=== PATIENT | female | born 1955 | race Hispanic/Latino ===

== ENCOUNTER 2018-08-18 03:04 | Inpatient (IN) | payer OTHER ==
[2018-08-18] MEDS ORDERED: HEPARIN ONE (03:15)
--- NOTE | 2018-08-18 03:16 | Emergency Department Report ---
ED General Adult HPI - General Chief complaint: Chest Pain Stated complaint: STEMI Time Seen by Provider: 08/18/18 03:15 Source: EMS Mode of arrival: Stretcher Limitations: Physical Limitation - History of Present Illness Initial comments: 62-year-old female with a prior history of coronary artery disease presents with the complaint of chest pain was started 1:30 AM. Patient caught EMS. Patient has a history of 2 prior MIs in 2011 and 2 prior stents. Family states that one of the stents collapse recently. Patient was given 324 aspirin 0.4 nitrogl ycerin 75 g of fentanyl prior to arrival. Patient states initially her pain was 8 out of 10 with administration of fentanyl and nitroglycerin pain now as a 3 out of 10. - Related Data Allergies Allergy/AdvReac Type Severity Reaction Status Date / Time No Known Allergies Allergy Verified 08/18/18 03:15 ED Review of Systems ROS: Stated complaint: STEMI Other details as noted in HPI Constitutional: denies: chills, fever Eyes: denies: eye pain, eye discharge, vision change ENT: denies: ear pain, throat pain Respiratory: denies: cough, shortness of breath, wheezing Cardiovascular: chest pain Endocrine: no symptoms reported Gastrointestinal: denies: abdominal pain, nausea, diarrhea Genitourinary: denies: urgency, dysuria, discharge Musculoskeletal: denies: back pain, joint swelling, arthralgia Skin: denies: rash, lesions Neurological: denies: headache, weakness, paresthesias Psychiatric: denies: anxiety, depression Hematological/Lymphatic: denies: easy bleeding, easy bruising ED Past Medical Hx - Past Medical History Previous Medical History?: Yes Hx Hypertension: Yes Hx CVA: Yes (X2 in 2011. Stents X2) - Surgical History Past Surgical History?: Yes - Social History Smoking Status: Unknown if ever smoked ED Physical Exam - General Limitations: Physical Limitation General appearance: alert, other (uncomfortable; moderate distress) - Head Head exam: Present: atraumatic, normocephalic - Eye Eye exam: Present: normal appearance - ENT ENT exam: Present: mucous membranes moist - Neck Neck exam: Present: normal inspection - Respiratory Respiratory exam: Present: normal lung sounds bilaterally. Absent: respiratory distress - Cardiovascular Cardiovascular Exam: Present: regular rate, normal rhythm. Absent: systolic murmur, diastolic murmur, rubs, gallop - GI/Abdominal GI/Abdominal exam: Present: soft, normal bowel sounds - Extremities Exam Extremities exam: Present: normal inspection - Back Exam Back exam: Present: normal inspection - Neurological Exam Neurological exam: Present: alert, oriented X3 - Psychiatric Psychiatric exam: Present: normal affect, normal mood - Skin Skin exam: Present: warm, dry, intact, normal color. Absent: rash ED Course Vital Signs 08/18/18 08/18/18 03:18 03:20 Pulse Rate 80 Respiratory 16 Rate Blood Pressure 127/75 ED Medical Decision Making - EKG Data -: EKG Interpreted by Me EKG shows normal: ST-T waves Rate: normal - EKG Data Interpretation: other (ST elevation PR noted. ST elevation of 4 mm noted in V2 V3 V4 as well as V5) - Medical Decision Making Patient presented with EKG concerning for a STEMI. EKG from EMS was sent to Dr. Dangelo at 0256. Upon discussion of the patient as well as him reviewing the EKG denies sent to him the attacks he stated initially that he wanted to have a repeat EKG once patient presented here to the ER. Patient then presented here to the ER and had a EKG read repeated and sent to at 0308. Upon receiving this EKG he states that the patient is indeed a STEMI and to activate the laborer construction or leak gang. Patient then received a second dose of nitroglycerin 0.4 mg and was initiated on heparin therapy. - Differential Diagnosis STEMI; NSTEMI; anemia; dehydration; Critical Care Time: Yes Critical care time in (mins) excluding proc time.: 40 Critical care attestation.: If time is entered above; I have spent that time in minutes in the direct care of this critically ill patient, excluding procedure time. Critical care time includes time spent on direct bedside care; physician con sultation, and frequent reassessments. ED Disposition Clinical Impression: STEMI (ST elevation myocardial infarction) Disposition: -09 OP ADMIT IP TO THIS HOSP Is pt being admited?: Yes Does the pt Need Aspirin: Yes Condition: Fair Referrals: SCOTT GIBBS MD [Primary Care Provider] - 3-5 Days Time of Disposition: 03:35 Print Language: CHILEAN
[2018-08-18] MEDS ORDERED: NITROSTAT SL ONE (03:18)
[2018-08-18] MEDS ORDERED: HEPARIN 10,000 UNITS/10 ML IV ONE (03:19)
[2018-08-18] MEDS: HEPARIN IV STA ×2 (03:19→03:24)
[2018-08-18] MEDS ORDERED: HEPARIN/ 0.45% NACL-25,000 UNIT/500 ML 25,000 UNIT/500 ML BAG ONE (03:23)
--- NOTE | 2018-08-18 03:29 | XRay Report ---
PROCEDURE: XR CHEST 1V AP TECHNIQUE: A portable supine view of the chest was obtained. HISTORY: Chest Pain COMPARISONS: None FINDINGS: The heart size is normal. The lungs appear mildly congested. There is bilateral interstitial prominen ce. Pleural fluid is not seen. The skeletal structures do not show any acute changes. IMPRESSION: Mild congestive heart failure pattern.. This document is electronically signed by Beltran Diamond MD., August 18 2018 03:27:19 AM ET
[2018-08-18] MEDS ORDERED: HEPARIN/ 0.45% NACL-25,000 UNIT/500 ML 25,000 UNIT/500 ML BAG IV SCH (03:30)
[2018-08-18] MEDS ORDERED: PLAVIX PO ONE ×2 (03:37→03:38)
[2018-08-18 03:47] LABS: Hematocrit 38.2 % (30.3-42.9); Hemoglobin 12.8 gm/dl (10.1-14.3); Mean Corpuscular HGB Conc 34 % (30-34); Mean Corpuscular Volume 92 fl (79-97); Platelet Count 412 K/mm3 (140-440); Red Blood Count 4.16 M/mm3 (3.65-5.03); Red Cell Distribution Width 12.7 % (13.2-15.2)
[2018-08-18] MEDS ORDERED: ATROPINE 0.1% (CARDIAC) ONE ×3 (03:50→10:45)
[2018-08-18] MEDS ORDERED: ADRENALIN ONE ×3 (03:50→10:45)
[2018-08-18] MEDS ORDERED: XYLOCAINE CARDIAC IV ONE ×3 (03:50→10:45)
[2018-08-18] MEDS ORDERED: VERSED ONE (03:51)
[2018-08-18] MEDS ORDERED: NITROGLYCERIN SYRINGE 3 ML ONE ×3 (03:51→10:21)
[2018-08-18] MEDS ORDERED: CALAN ONE (03:51)
[2018-08-18] MEDS ORDERED: HEPARIN/NS 5000 UNIT/500ML(CATH LAB) 1,000 ML IR ONE ×2 (03:51→10:20)
[2018-08-18] MEDS ORDERED: NEO SYNEPHRINE/NS Syringe(OR USE) IV ONE ×3 (03:51→11:38)
[2018-08-18] MEDS ORDERED: XYLOCAINE 2% INFILTRATI ONE ×2 (03:51→10:21)
[2018-08-18] MEDS: SUBLIMAZE ONE ×2 (03:55→04:17)
[2018-08-18 03:57] LABS: INR 0.95 (0.87-1.13)
[2018-08-18] MEDS: HEPARIN 10,000 UNITS/10 ML ONE ×2 (03:57→04:03)
[2018-08-18 03:58] LABS: Partial Thromboplastin Time 22.8 Sec. (24.2-36.6)
[2018-08-18 04:08] LABS: Alanine Aminotransferase 17 units/L (7-56); Albumin 4.3 g/dL (3.9-5); BUN/Creatinine Ratio 24; Blood Urea Nitrogen 22 mg/dL (7-17); Calcium 9.7 mg/dL (8.4-10.2); Hemolysis Index 4
[2018-08-18] MEDS ORDERED: AGGRASTAT DRIP (12.5 MG/250 ML) 12,500 MCG/250 ML BAG IV ONE ×2 (04:11→11:35)
[2018-08-18] MEDS ORDERED: NACL 0.9% 500 ML 500 ML ONE ×3 (04:13→11:44)
[2018-08-18 04:20] LABS: LDL Cholesterol,Direct TNR mg/dL (50-130)
[2018-08-18] MEDS ORDERED: TRIDIL DRIP 50MG/250ML 50 MG/250 ML BOTTLE ONE (04:20)
[2018-08-18] MEDS ORDERED: BRILINTA ONE (04:21)
[2018-08-18] MEDS ORDERED: ALUM-MAG HYDROX-SIMETH 200-200-20MG/5ML ONE (04:21)
[2018-08-18] MEDS ORDERED: PLAVIX ONE (04:51)
[2018-08-18 04:52] LABS: Band Neutrophils # (Manual) 0.1 K/mm3; Basophils % (Manual) 0 % (0.0-1.8); Total Cells Counted 100
[2018-08-18 04:54] LABS: Platelet Estimate Consistent w Auto
[2018-08-18 04:55] LABS: Chol/HDL Ratio 13.32 %; HDL Cholesterol 25 mg/dL (40-59)
[2018-08-18] MEDS ORDERED: TRIDIL DRIP 50MG/250ML 50 MG/250 ML BOTTLE IV ONE (05:08)
[2018-08-18] MEDS ORDERED: MORPHINE IV PRN (05:08)
[2018-08-18] MEDS ORDERED: ZOFRAN IV PRN (05:08)
[2018-08-18] MEDS ORDERED: MORPHINE ONE (05:17)
[2018-08-18] MEDS ORDERED: D50W (25GM) Syringe IV PRN (05:20)
--- NOTE | 2018-08-18 05:20 | History and Physical Report ---
History of Present Illness Date of examination: 08/18/18 Date of admission: 08/18/2018 Chief complaint: chest pain History of present illness: 62-year-old patient with known coronary disease in 2008 had PCI hypertension hyperlipidemia patient states adverse reaction to statin medication causing muscle pain and diabetes insulin requiring [place] had chest pain midsternal nonradiating with mild nausea which shortness of breath pressure-like with mild nausea no syncope EMS was called showed some mild ST elevations but no reciprocal changes patient's pain did not get better. Repeat EKG showed increased ST elevations in anterior lateral leads and acute NH protocol was initiated. Patient was brought emergently to [facility] where the right radial approach revealed RCA nondominant stent 90% mid nondominant vessel small caliber and borderline normal LV function elevated left end-diastolic pressure. Left knee enlargement. LAD proximal 95 mid 100% diagonal one stent patent but distal to 90% small-caliber vessel circumflex large dominant. Her mom irregularities obtuse marginal 1 and obtuse marginal 2 medium to large caliber vessels patent with mild to moderate irregularities separate percutaneous coronary intervention of the LAD ballooned the LAD and used a thrombectomy device for large clot burden intracoronary adenosine and nitroglycerin was given patient's stent to the mid LAD with a drug-eluting resolute 3.0 x 18 and stent of the proximal LAD with a drug-eluting resolute 4.0 x 18 KACI-3 was restored patient has some mild chest pain but markedly improved patient will be on IV nitroglycerin and IV Aggrastat Plavix loading was given Past History Past Medical History: CAD, diabetes, hypertension, hyperlipidemia Past Surgical History: denies: No surgical history Social history: denies: smoking, alcohol abuse, prescription drug abuse Medications and Allergies Allergies Allergy/AdvReac Type Severity Reaction Status Date / Time No Known Allergies Allergy Verified 08/18/18 03:15 Home Medications Medication Instructions Recorded Confirmed Last Taken Type Fenofibrate [Tricor] 145 mg PO DAILY 08/18/18 08/18/18 1 Day Ago History ~08/17/18 Gabapentin [Neurontin] 300 mg PO TID 08/18/18 08/18/18 1 Day Ago History ~08/17/18 Insulin Aspart [NovoLOG 100 10 units SUB-Q AC 08/18/18 08/18/18 1 Day Ago History UNITS/ML VIAL] ~08/17/18 Insulin Detemir [Levemir VIAL] 30 units SUB-Q BID 08/18/18 08/18/18 1 Day Ago History ~08/17/18 Metoprolol Tartrate 50 mg PO BID 08/18/18 08/18/18 1 Day Ago History ~08/17/18 Active Meds: Active Medications Aspirin (Baby Aspirin) 81 mg PO QDAY [facility] Clopidogrel Bisulfate (Plavix) 75 [facility] PO [facility] Fenofibrate (Tricor) 145 mg PO DAILY [facility] Gabapentin (Neurontin) 300 mg PO TID [facility] Heparin Sodium/Sodium Chloride (Heparin/ 0.45% Nacl-25,000 Unit/500 Ml) 25,000 unit in 500 mls @ 20 mls/hr IV TITRATE [facility]; Protocol Last Admin: 08/18/18 03:29 Dose: 1,000 units/hr, 20 mls/hr Documented by: Tirofiban/Sodium Chloride (Aggrastat Drip (12.5 Mg/250 Ml)) 12,500 mcg in 250 mls @ 0 mls/hr IV DIRECT [facility]IO; Protocol Stop: 08/18/18 23:59 Nitroglycerin/Dextrose (Tridil Drip 50mg/250ml) 50 mg in 250 mls @ 6 mls/hr IV TITR ONE; Protocol Stop: 08/19/18 22:47 Sodium Chloride (Nacl 0.9% 1000 Ml) 1,000 mls @ 100 mls/hr IV DIRECT [facility] Stop: 08/18/18 15:59 Lisinopril (Zestril) 5 mg PO QDAY [facility] Metoprolol Tartrate (Lopressor) 50 mg PO BID [facility] Miscellaneous Medication (Insulin Aspart) 10 units SUB-Q AC [facility] Miscellaneous Medication (Insulin Detemir [Levemir Vial]) 30 units SUB-Q BID [facility] Morphine Sulfate (Morphine) 2 mg IV Q5MIN PRN PRN Reason: Chest Pain unrelieved by NTG Ondansetron HCl (Zofran) 4 mg IV Q8H PRN PRN Reason: N/V unrelieved by Reglan Review of Systems All systems: negative (as per hpi) Physical Examination Vital Signs Pulse Resp BP Pulse Ox 72 15 129/74 96 08/18/18 03:07 08/18/18 03:07 08/18/18 03:07 08/18/18 03:07 General appearance: mild distress HEENT: Positive: PERRL, Mucus Membranes Moist Neck: Positive: neck supple, trachea midline Cardiac: Positive: Reg Rate and Rhythm, S1/S2. Negative: Audible Murmur Lungs: Positive: clear to auscultation, Normal Breath Sounds Neuro: Positive: Grossly Intact Abdomen: Positive: Soft, Active Bowel Sounds. Negative: Tender, Distended Female genitourinary: deferred Skin: Positive: Clear Incision: Cardiac Cath Site Musculoskeletal: No Pain, Normal Range of Motion Extremities: Present: normal. Absent: edema Results 08/18/18 03:24 08/18/18 03:24 Cardiac Enzymes 08/18/18 Range/Units 03:24 AST 18 (5-40) units/L Coagulation 08/18/18 Range/Units 03:24 PT 13.2 (12.2-14.9) Sec. INR 0.95 (0.87-1.13) APTT 22.8 L (24.2-36.6) Sec. Lipids 08/18/18 Range/Units 03:24 Triglycerides 483 H (2-149) mg/dL Cholesterol 333 H (50-199) mg/dL HDL Cholesterol 25 L (40-59) mg/dL Cholesterol/HDL Ratio 13.32 % CBC 08/18/18 Range/Units 03:24 WBC 11.2 H (4.5-11.0) K/mm3 RBC 4.16 (3.65-5.03) M/mm3 Hgb 12.8 (10.1-14.3) gm/dl Hct 38.2 (30.3-42.9) % Plt Count 412 (140-440) K/mm3 Lymph # Mine Superintendent Comprehensive Metabolic Panel 08/18/18 Range/Units 03:24 Sodium 139 (137-145) mmol/L Potassium 3.4 L (3.6-5.0) mmol/L Chloride 98.9 (98-107) mmol/L Carbon Dioxide 24 (22-30) mmol/L BUN 22 H (7-17) mg/dL Creatinine 0.9 (0.7-1.2) mg/dL Glucose 302 H (65-100) mg/dL Calcium 9.7 (8.4-10.2) mg/dL AST 18 (5-40) units/L ALT 17 (7-56) units/L Alkaline Phosphatase 61 (35-129) units/L Total Protein 7.1 (6.3-8.2) g/dL Albumin 4.3 (3.9-5) g/dL - Imaging and Cardiology Cardiac cath: report reviewed (right radial approach revealed RCA nondominant stent 90% mid nondominant vessel small caliber and borderline normal LV function elevated left end-diastolic pressure. Left knee enlargement. LAD proximal 95 mid 100% diagonal one stent patent but distal to 90% small-caliber vessel circumflex large dominant. Her mom irregularities obtuse marginal 1 and obtuse marginal 2 medium to large caliber vessels patent with mild to moderate irregularities separate percutaneous coronary intervention of the LAD ballooned the LAD and used a thrombectomy device for large clot burden intracoronary adenosine and nitroglycerin was given patient's stent to the mid LAD with a drug-eluting resolute 3.0 x 18 and stent of the proximal LAD with a drug-eluting resolute 4.0 x 18 ) EKG interpretations - Telemetry EKG Rhythm: Sinus Rhythm (nsr acute anterior and lateral wall mi) Assessment and Plan Patient will be managed in ICU will continue aspirin and Plavix patient will be on IV Actos and IV nitroglycerin for clot burden and small vessel disease continue treatment medically patient is a mild chest pain patient potassium. Replace a potassium and hospitalist consult for diabetes management we'll try low dose statin medication given her history of muscle pains with that medications and continue to fenofibrate and patient will continue beta leny and ETELVINA inhibitor. Discussed with the patient patient started detail about card iac status and will treat medically with nitrates once patient is stabilized for small vessel disease - Patient Problems (1) Acute anterior wall NH Current Visit: Yes Status: Acute (2) Acute diastolic CHF (congestive heart failure) Current Visit: Yes Status: Acute (3) Uncontrolled type 1 diabetes mellitus Current Visit: Yes Status: Chronic Qualifiers: Glycemic state: with hyperglycemia Qualified Code(s): E10.65 - Type 1 diabetes mellitus with hyperglycemia (4) Hyperlipemia, mixed Current Visit: Yes Status: Chronic (5) Hypertension Current Visit: Yes Status: Acute Qualifiers: Hypertension type: essential hypertension Qualified Code(s): I10 - Essential (primary) hypertension
[2018-08-18] MEDS ORDERED: K-DUR PO ONE (05:24)
[2018-08-18] MEDS ORDERED: AGGRASTAT DRIP (12.5 MG/250 ML) 12,500 MCG/250 ML BAG IV SCH (06:00)
[2018-08-18] MEDS ORDERED: HumaLOG SUB-Q SCH ×2 (06:00→07:30)
[2018-08-18] MEDS ORDERED: NACL 0.9% 1000 ML 1,000 ML IV SCH (06:00)
--- NOTE | 2018-08-18 06:04 | Consultation ---
History of Present Illness - Reason for Consult Consult date: 08/18/18 dm mgt Requesting physician: JACEY MCKEON - History of Present Illness 62-year-old woman with a history of hypertension, diabetes, complicated by neuropathy, hyperlipidemia, coronary artery disease was brought to the emergency room for chest pain, found to have a non-STEMI and taken emergently to lab assistant. Patient takes metformin and Levemir for her diabetes, her sugar ranges from 200-250, states she is compliant with medications Review of systems Constitutional: no weight loss, chills, fever Ears, eyes, nose, mouth and throat: no nasal congestion, no nasal discharge, no sinus pressure, no vision change, no red eye. Neck: No neck pain or rigidity. Cardiovascular: no palpitations, +chest pain Respiratory: no cough, +shortness of breath Gastrointestinal: no hematochezia, abdominal pain Genitourinary : no frequency , no hematuria Musculoskeletal: no joint swelling or muscle ache Integumentary: no rash, no pruritis Neurological: no parathesias, no focal weakness Endocrine: no cold or heat intolerance, no polyuria or polydipsia Hematologic/Lymphatic: no easy bruising, no easy bleeding, no gland swelling Allergic/Immunologic: no urticaria, no angioedema. PAST MEDICAL HISTORY:hypertension, diabetes, complicated by neuropathy, hyperlipidemia, coronary artery disease PAST SURGICAL HISTORY: None SOCIAL HISTORY: Denies alcohol, drugs, tobacco FAMILY HISTORY: Hypertension Past History Past Medical History: CAD, diabetes, hypertension, hyperlipidemia Past Surgical History: denies: No surgical history Social history: denies: smoking, alcohol abuse, prescription drug abuse Medications and Allergies Allergies Allergy/AdvReac Type Severity Reaction Status Date / Time No Known Allergies Allergy Verified 08/18/18 03:15 Home Medications Medication Instructions Recorded Confirmed Last Taken Type Fenofibrate [Tricor] 145 mg PO DAILY 08/18/18 08/18/18 1 Day Ago History ~08/17/18 Gabapentin [Neurontin] 300 mg PO TID 08/18/18 08/18/18 1 Day Ago History ~08/17/18 Insulin Aspart [NovoLOG 100 10 units SUB-Q AC 08/18/18 08/18/18 1 Day Ago H istory UNITS/ML VIAL] ~08/17/18 Insulin Detemir [Levemir VIAL] 30 units SUB-Q BID 08/18/18 08/18/18 1 Day Ago History ~08/17/18 Metoprolol Tartrate 50 mg PO BID 08/18/18 08/18/18 1 Day Ago History ~08/17/18 Active Meds: Active Medications Aspirin (Baby Aspirin) 81 mg PO QDAY [facility] Clopidogrel Bisulfate (Plavix) 75 mg PO QDAY [facility] Dextrose (D50w (25gm) Syringe) 50 ml IV PRN PRN PRN Reason: Hypoglycemia Fenofibrate (Tricor) 145 mg PO DAILY [facility] Gabapentin (Neurontin) 300 mg PO TID [facility] Heparin Sodium/Sodium Chloride (Heparin/ 0.45% Nacl-25,000 Unit/500 Ml) 25,000 unit in 500 mls @ 20 mls/hr IV TITRATE [facility]; Protocol Last Admin: 08/18/18 03:29 Dose: 1,000 units/hr, 20 mls/hr Documented by: Tirofiban/Sodium Chloride (Aggrastat Drip (12.5 Mg/250 Ml)) 12,500 mcg in 250 mls @ 15 mls/hr IV DIRECT [facility]IO; Protocol Stop: 08/18/18 23:59 Nitroglycerin/Dextrose (Tridil Drip 50mg/250ml) 50 mg in 250 mls @ 6 mls/hr IV TITR ONE; Protocol Stop: 08/19/18 22:47 Sodium Chloride (Nacl 0.9% 1000 Ml) 1,000 mls @ 100 mls/hr IV DIRECT [facility] Stop: 08/18/18 15:59 Insulin Glargine (Lantus) 30 units SUB-Q BID [facility] Insulin Human Lispro (Humalog) 10 unit SUB-Q AC [facility] Insulin Human Lispro (Humalog) 0 unit SUB-Q Q6HR [facility]; Protocol Lisinopril (Zestril) 5 mg PO QDAY [facility] Metoprolol Tartrate (Lopressor) 50 mg PO BID [facility] Morphine Sulfate (Morphine) 2 mg IV Q5MIN PRN PRN Reason: Chest Pain unrelieved by NTG Ondansetron HCl (Zofran) 4 mg IV Q8H PRN PRN Reason: N/V unrelieved by Reglan Pravastatin Sodium (Pravachol) 20 mg PO QHS [facility] Exam - Physical Exam Narrative exam: General Apperance: The patient lying in bed, breathing comfortable HEENT: Normocephalic, atraumatic. Pupils equally round and reactive to light, EOMI, no sclericterus or JVD or thyromegaly or nodule. , no carotid bruit, mucous membranes moist, no exudate or erythema Heart: S1-S2, regular is rhythm Lungs: Clear to auscultation bilaterally, breathing comfortable Abdomen: Positive bowel sounds, soft, nontender, nondistended, no organomegaly Extremities: No edema cyanosis clubbing Skin: no rash, nodule, warm and dry Neuro: cranial nerves 2-12 intact, speech is fluent, motor/sensory intact - Constitutional Vitals: Temp Pulse Resp BP Pulse Ox 98.0 F 80 16 127/75 96 08/18/18 03:30 08/18/18 03:20 08/18/18 03:18 08/18/18 03:20 08/18/18 03:07 Results - Labs CBC & Chem 7: 08/18/18 10:05 08/18/18 10:05 Labs: Abnormal lab results 08/18/18 08/18/18 08/18/18 Range/Units 03:24 03:24 03:24 WBC 11.2 H (4.5-11.0) K/mm3 RDW 12.7 L (13.2-15.2) % Seg Neuts % (Manual) 29.0 L (40.0-70.0) % Lymphocytes % (Manual) 58.0 H (13.4-35.0) % Eosinophils % (Manual) 5.0 H (0.0-4.3) % Lymphocytes # (Manual) 6.5 H (1.2-5.4) K/mm3 Eosinophils # (Manual) 0.6 H (0.0-0.4) K/mm3 APTT 22.8 L (24.2-36.6) Sec. Potassium 3.4 L (3.6-5.0) mmol/L BUN 22 H (7-17) mg/dL Glucose 302 H (65-100) mg/dL Troponin T 0.033 H (0.00-0.029) ng/mL Triglycerides 483 H (2-149) mg/dL Cholesterol 333 H (50-199) mg/dL HDL Cholesterol 25 L (40-59) mg/dL - Imaging and Cardiology EKG: image reviewed Chest x-ray: report reviewed Assessment and Plan Assessment Diabetes complicated by neuropathy Plan Check finger stick and start insulin sliding scale Once patient resumes diet, start home medications
[2018-08-18] MEDS ORDERED: NON-FORMULARY (Insulin Aspart 10 UNITS) SUB-Q SCH (07:30)
[2018-08-18] MEDS ORDERED: NEURONTIN PO SCH (08:00)
--- NOTE | 2018-08-18 08:56 | Cardiac Catherization Report ---
LEFT HEART CATHETERIZATION/THROMBECTOMY/INTRAVASCULAR ULTRASOUND/PERCUTANEOUS CORONARY INTERVENTIONAL REPORT CLINICAL INFORMATION: This is a 62-year-old female with known history of diabetes, hypertension, hyperlipidemia, resistant to statin medication, causes muscle pains, on fenofibrate, who had stent in 2008 presents with chest pain for the last 2 hours. Initial EKG done by EMS did not meet diagnostic criteria for an acute [place]. The patient received nitro, aspirin by EMS and brought to the ER. Second EKG showed ST elevation in anterolateral leads, worsening. Second qualifying EKG, ST elevation [place] protocol was initiated. The patient was done with moderate sedation, 0.5 mg Versed and 100 mcg of fentanyl given. Sedation time 03:55 a.m., finished at 04:40 a.m. 45 minutes moderate sedation noted. 2. Left heart catheterization performed via the right radial artery, sterile technique, local anesthesia, 6-Haitian radial sheath inserted. 3. LV gram done in NIGERIEN and WHITTAKER view shows borderline normal LV function, EF 50%. LVEDP of 36 mmHg, LV is 140 mmHg. Aortic is 130/72. No gradient across the aortic valve on pullback and RCA stent on fluoroscopy and_ engage with JR4 to use the 3DRC, which revealed nondominant vessel. Ostial 95%, stent patent. proximal stent is 90% lesion, but small caliber vessel and diffusely diseased and nondominant RCA. 4. Left system engaged with EBU 3.5 catheter. Left main is large and patent, bifurcates into large LAD, proximal 95, mid 100%, diagonal stent patent, ostial diagonal 1, 50% after stent is 90% lesion of a small caliber vessel, less than 2 mm. Circumflex is a large dominant vessel, mild luminal irregularities. AV groove, OM1 and OM2 are medium caliber vessels with mild to moderate luminal irregularities, small PDA patent, so percutaneous coronary intervention of the LAD. 1. Engaged left system with EBU 3.5 guiding catheter. 2. Crossed into the distal LAD with short [place] wire. 3. Predilated with 2.5 x 12 balloon in the mid and proximal LAD x 4 inflations. The patient had a heavy thrombus burden. 4. Use thrombectomy [facility] device, two passes done, which helped improve flow, reduced thrombus. 5. Intracoronary adenosine 200 mcg and KACI 3 flow established and stent patent in the mid to distal LAD.poor blush score. 6. An intravascular ultrasound showed mid LAD, 3.0 x 3.5 caliber and the proximal LAD 4.5 x 4.5 with large plaque burden. 7. Stented mid LAD above the previous stent and below the diagonal 1 with a drug-eluting Resolute 3.0 x 18 at 18 atmospheres and stent to the proximal LAD with 4.0 x 18 Resolute at 18 atmospheres, gave intracoronary nitro and adenosine. KACI 3 flow was obtained with no dissection, no embolization, but microcirculation is poor secondary to heavy clot burden and diabetes. The patient was loaded with Plavix, nitro and Aggrastat were given. Multiple angiograms with coronary wire removed. Excellent angiographic results, stent placement and opposed and no dissection or perforation noted. 8. A 6-Haitian guiding catheter taken over guidewire, 6-Haitian radial sheath was discontinued. Radial band applied. No hematoma, no bleeding. SUMMARY: 1. Successful PCI of the proximal LAD with drug-eluting Resolute 4.0 x 18 in the mid LAD with drug-eluting Resolute Jared 3.0 x 18, previously deployed mid to distal stent patent, diagonal 1 stent patent, but after that is 90% of a small caliber vessel, circ is a large dominant vessel that is patent. OM1 and OM2 are patent with mild to moderate luminal irregularities. RCA is a nondominant mid stent, has ostial 90% with mid proximal 90%. 2. Borderline LV function. suggest echo for lv function The patient will be on aspirin and Plavix, will try low-dose statin and given a history of malaise, continue fenofibrate, diabetes control. Discussed in detail with the patient and patient's family.pt pain had improved and will moved to icu for further management with iv nitro, iv aggrastat. JOB# [id number] JAMES/JANAY FRYE
[2018-08-18] MEDS ORDERED: ALUM-MAG HYDROX-SIMETH 200-200-20MG/5ML PO PRN (09:27)
[2018-08-18] MEDS ORDERED: CORDARONE 900 MG in D5W 482 ML IV SCH (10:00)
[2018-08-18] MEDS ORDERED: LOPRESSOR PO SCH (10:00)
[2018-08-18] MEDS ORDERED: BABY ASPIRIN PO SCH (10:00)
[2018-08-18] MEDS ORDERED: LANTUS SUB-Q SCH (10:00)
[2018-08-18] MEDS ORDERED: INSULIN DETEMIR 30 UNIT SUB-Q SCH (10:00)
[2018-08-18] MEDS ORDERED: TRICOR PO SCH (10:00)
[2018-08-18] MEDS ORDERED: ZESTRIL PO SCH (10:00)
[2018-08-18] MEDS ORDERED: KCL 20MEQ/100ML 20 MEQ/100 ML BAG IV ONE (10:00)
--- NOTE | 2018-08-18 10:20 | Event Note ---
Date: 08/18/18 Came to see patient at the ICU She just came from cytogenetics laboratory manager after having PCI to LAD Patient was lethargic and noted Vtach on monitor, lost her pulse. Called [facility] emanuel, ACLS immediately started Dr. Chinchilla and Dr Jacobs was at bedside too For details please see the code sheet Patient was intubated, defibrillated, given Mg, epinephrine Code blue lasted about 40 minutes with return of circulation, patient was responsive to stimuli Femoral line placed by CC, placed on lidocaine drip then changed to amiodarone she was taken back to the cytogenetics laboratory manager. Patient's daughter was called by phone. Updated patient's and answered all question.
[2018-08-18] MEDS ORDERED: SUBLIMAZE ONE (10:21)
[2018-08-18] MEDS ORDERED: HEPARIN 10,000 UNITS/10 ML ONE ×2 (10:21→11:08)
[2018-08-18 10:30] LABS: Hematocrit 39.2 % (30.3-42.9); Hemoglobin 12.7 gm/dl (10.1-14.3); Mean Corpuscular HGB Conc 32 % (30-34); Mean Corpuscular Volume 94 fl (79-97); Platelet Count 326 K/mm3 (140-440); Red Blood Count 4.16 M/mm3 (3.65-5.03)
[2018-08-18] MEDS ORDERED: HEPARIN/NS 5000 UNIT/500ML(CATH LAB) 1,500 ML IR ONE (10:32)
--- NOTE | 2018-08-18 10:34 | Progress Note ---
Assessment and Plan On initial evaluation, pt A&O c/o 3/10 epigastric pain after eating breakfast tray. repeat ECG showed acute anterior STEMI and code stemi activated. pt then developed VT and then VFib and code blue initiated. ROSC obtained after ACLS protocol and pt to be taken back to collaborative teacher for repeat coronary angiography. In-stent restenosis suspected. The patient has been seen in conjunction with Dr. Chinchilla who agrees with the assessment and plan of care. - Patient Problems (1) STEMI (ST elevation myocardial infarction) Current Visit: Yes Status: Acute (2) Cardiopulmonary arrest with successful resuscitation Current Visit: Yes Status: Acute (3) V-tach Current Visit: Yes Status: Acute (4) Ventricular fibrillation Current Visit: Yes Status: Acute (5) CAD (coronary artery disease) Current Visit: Yes Status: Chronic (6) Stented coronary artery Current Visit: Yes Status: Chronic (7) Hypertension Current Visit: Yes Status: Chronic Qualifiers: Hypertension type: essential hypertension Qualified Code(s): I10 - Essential (primary) hypertension (8) Hyperlipemia, mixed Current Visit: Yes Status: Chronic (9) Uncontrolled type 1 diabetes mellitus Current Visit: Yes Status: Chronic Qualifiers: Glycemic state: with hyperglycemia Qualified Code(s): E10.65 - Type 1 diabetes mellitus with hyperglycemia Subjective Date of service: 08/18/18 Principal diagnosis: STEMI Interval history: On initial evaluation, pt A&O c/o 3/10 epigastric pain after eating breakfast tray. repeat ECG showed acute anterior STEMI and code stemi activated. pt then developed VTac and VFib and code blue initiated. ROSC obtained after ACLS protocol and pt to be taken back to collaborative teacher. Objective Last Vital Signs Temp 97.9 F 08/18/18 06:09 Pulse 109 H 08/18/18 08:10 Resp 19 08/18/18 08:10 BP 122/67 08/18/18 08:10 Pulse Ox 97 08/18/18 08:10 - Physical Examination HEENT: Positive: PERRL, Mucus Membranes Moist Neck: Positive: neck supple, trachea midline Cardiac: Positive: Regular Rhythm, S1/S2 Abdomen: Positive: Soft, Active Bowel Sounds. Negative: Tender, Distended Skin: Positive: Clear Incision: Cardiac Cath Site Musculoskeletal: No Pain, Normal Range of Motion Extremities: Present: normal. Absent: edema - Labs and Meds Cardiac Enzymes 08/18/18 Range/Units 03:24 AST 18 (5-40) units/L Coagulation 08/18/18 Range/Units 03:24 PT 13.2 (12.2-14.9) Sec. INR 0.95 (0.87-1.13) APTT 22.8 L (24.2-36.6) Sec. Lipids 08/18/18 Range/Units 03:24 Triglycerides 483 H (2-149) mg/dL Cholesterol 333 H (50-199) mg/dL HDL Cholesterol 25 L (40-59) mg/dL Cholesterol/HDL Ratio 13.32 % CBC 08/18/18 Range/Units 03:24 WBC 11.2 H (4.5-11.0) K/mm3 RBC 4.16 (3.65-5.03) M/mm3 Hgb 12.8 (10.1-14.3) gm/dl Hct 38.2 (30.3-42.9) % Plt Count 412 (140-440) K/mm3 Lymph # Agricultural Education Professor Comprehensive Metabolic Panel 08/18/18 Range/Units 03:24 Sodium 139 (137-145) mmol/L Potassium 3.4 L (3.6-5.0) mmol/L Chloride 98.9 (98-107) mmol/L Carbon Dioxide 24 (22-30) mmol/L BUN 22 H (7-17) mg/dL Creatinine 0.9 (0.7-1.2) mg/dL Glucose 302 H (65-100) mg/dL Calcium 9.7 (8.4-10.2) mg/dL AST 18 (5-40) units/L ALT 17 (7-56) units/L Alkaline Phosphatase 61 (35-129) units/L Total Protein 7.1 (6.3-8.2) g/dL Albumin 4.3 (3.9-5) g/dL - Imaging and Cardiology EKG: image reviewed Echo: pending Cardiac cath: report reviewed (right radial approach revealed RCA nondominant stent 90% mid nondominant vessel small caliber and borderline normal LV function elevated left end-diastolic pressure. Left knee enlargement. LAD proximal 95 mid 100% diagonal one stent patent but distal to 90% small-caliber vessel circumflex large dominant. Her mom irregularities obtuse marginal 1 and obtuse marginal 2 medium to large caliber vessels patent with mild to moderate irregularities separate percutaneous coronary intervention of the LAD ballooned the LAD and used a thrombectomy device for large clot burden intracoronary adenosine and nitroglycerin was given patient's stent to the mid LAD with a drug-eluting resolute 3.0 x 18 and stent of the proximal LAD with a drug-eluting resolute 4.0 x 18 )
--- NOTE | 2018-08-18 10:38 | Consultation ---
History of Present Illness Consult date: 08/18/18 Requesting physician: NELSON CLARK Reason for consult: other (STEMI) History of present illness: 62-year-old patient with known coronary disease in 2008 had PCI hypertension hyperlipidemia patient states adverse reaction to statin medication causing muscle pain and diabetes insulin requiring [place] in [place] good [place] had chest pain midsternal nonradiating with mild nausea which shortness of breath pressure-like with mild nausea no syncope EMS was called showed some mild ST elevations but no reciprocal changes patient's pain did not get better. Repeat EKG showed increased ST elevations in anterior lateral leads and acute [place] protocol was initiated. Patient was brought emergently to slab polisher where the right radial approach revealed RCA nondominant stent 90% mid nondominant vessel small caliber and borderline normal LV function elevated left end-diastolic pressure. Left knee enlargement. LAD proximal 95 mid 100% diagonal one stent patent but distal to 90% small-caliber vessel circumflex large dominant. Her mom irregularities obtuse marginal 1 and obtuse marginal 2 medium to large caliber vessels patent with mild to moderate irregularities separate percutaneous coronary intervention of the LAD ballooned the LAD and used a thrombectomy device for large clot burden intracoronary adenosine and nitroglycerin was given patient's stent to the mid LAD with a drug-eluting resolute 3.0 x 18 and stent of the proximal LAD with a drug-eluting resolute 4.0 x 18 KACI-3 was restored patient has some mild chest pain but markedly improved patient will be on IV nitroglycerin and IV Aggrastat Plavix loading was given History as per Cardiology consult notes. Unable to obtain history. Currently orally intubated, s/p Vfib arrest with ROSC Per discussions with Kick Plate Installer, EF appears markedly depressed. - Past Medical History Previous Medical History?: Yes Hx Hypertension: Yes Hx CVA: Yes (X2 in 2012. Stents X2) - Surgical History Past Surgical History?: Yes - Social History Smoking Status: Unknown if ever smoked Past History Past Medical History: CAD, diabetes, hypertension, hyperlipidemia Past Surgical History: denies: No surgical history Social history: denies: smoking, alcohol abuse, prescription drug abuse Medications and Allergies Allergies Allergy/AdvReac Type Severity Reaction Status Date / Time No Known Allergies Allergy Verified 08/18/18 03:15 Home Medications Medication Instructions Recorded Confirmed Last Taken Type Fenofibrate [Tricor] 145 mg PO DAILY 03/20/19 03/20/19 1 Day Ago History ~08/17/18 Gabapentin [Neurontin] 300 mg PO TID 08/18/18 08/18/18 1 Day Ago History ~08/17/18 Insulin Aspart [NovoLOG 100 10 units SUB-Q AC 08/18/18 08/18/18 1 Day Ago History UNITS/ML VIAL] ~08/17/18 Insulin Detemir [Levemir VIAL] 30 units SUB-Q BID 08/18/18 08/18/18 1 Day Ago History ~08/17/18 Metoprolol Tartrate 50 mg PO BID 08/18/18 08/18/18 1 Day Ago History ~08/17/18 Active Meds: Active Medications Al Hydrox/Mg Hydrox/Simethicone (Alum-Mag Hydrox-Simeth [id number]/5ml) 15 ml PO Q4H PRN PRN Reason: Indigestion Aspirin (Baby Aspirin) 81 mg PO QDAY MARIO Clopidogrel Bisulfate (Plavix) 75 mg PO QDAY MARIO Dextrose (D50w (25gm) Syringe) 50 ml IV PRN PRN PRN Reason: Hypoglycemia Fenofibrate (Tricor) 145 mg PO DAILY MARIO Gabapentin (Neurontin) 300 mg PO TID MARIO Heparin Sodium/Sodium Chloride (Heparin/ 0.45% Nacl-25,000 Unit/500 Ml) 25,000 unit in 500 mls @ 20 mls/hr IV TITRATE MARIO; Protocol Last Admin: 08/18/18 03:29 Dose: 1,000 units/hr, 20 mls/hr Documented by: Tirofiban/Sodium Chloride (Aggrastat Drip (12.5 Mg/250 Ml)) 12,500 mcg in 250 mls @ 15 mls/hr IV DIRECT MARIO; Protocol Stop: 08/18/18 23:59 Nitroglycerin/Dextrose (Tridil Drip 50mg/250ml) 50 mg in 250 mls @ 6 mls/hr IV TITR ONE; Protocol Stop: 08/19/18 22:47 Sodium Chloride (Nacl 0.9% 1000 Ml) 1,000 mls @ 100 mls/hr IV DIRECT MARIO Stop: 08/18/18 15:59 Amiodarone HCl 900 mg/ (Dextrose) 500 mls @ 0 mls/hr IV DIRECT MARIO Potassium Chloride (Kcl 20meq/100ml) 20 meq in 100 mls @ 50 mls/hr IV ONCE ONE Stop: 08/18/18 11:59 Insulin Glargine (Lantus) 30 units SUB-Q BID [facility] Insulin Human Lispro (Humalog) 10 unit SUB-Q AC [facility] Last Admin: 08/18/18 08:52 Dose: 10 unit Documented by: Insulin Human Lispro (Humalog) 0 unit SUB-Q Q6HR [facility]; Protocol Lisinopril (Zestril) 5 mg PO QDAY [facility] Metoprolol Tartrate (Lopressor) 50 mg PO BID [facility] Morphine Sulfate (Morphine) 2 mg IV Q5MIN PRN PRN Reason: Chest Pain unrelieved by NTG Last Admin: 08/18/18 08:46 Dose: 2 mg Documented by: Ondansetron HCl (Zofran) 4 mg IV Q8H PRN PRN Reason: N/V unrelieved by Reglan Pravastatin Sodium (Pravachol) 20 mg PO QHS [facility] Review of Systems ROS unobtainable: due to endotracheal tube Physical Examination Vital signs: Vital Signs Pulse Resp BP Pulse Ox 72 15 129/74 96 08/18/18 03:07 08/18/18 03:07 08/18/18 03:07 08/18/18 03:07 - General Limitations: Physical Limitation General appearance: orally intubated, moving all extremities Orally intubated ETT at 22cm No patient -ventilator dys-synchrony - Head Head exam: Present: atraumatic, normocephalic - Eye Eye exam: Present: normal appearance - ENT ENT exam: Present: mucous membranes moist - Neck Neck exam: Present: normal inspection - Respiratory Respiratory exam: Present:Coarse BS bilaterally Absent: respiratory distress - Cardiovascular Cardiovascular Exam: Present: regular rate, normal rhythm. Absent: systolic murmur, diastolic murmur, rubs, gallop - GI/Abdominal GI/Abdominal exam: Present: soft, normal bowel sounds - Extremities Exam Extremities exam: Present: normal inspection - Back Exam Back exam: Present: normal inspection - Neurological Exam Neurological exam: Present: Awake, alert - Psychiatric Psychiatric exam: Present: unable to adequately assess - Skin Skin exam: Present: warm, dry, intact, normal color. Absent: rash Results - Laboratory Findings CBC and BMP: 08/18/18 10:05 08/18/18 10:05 PT/INR, D-dimer PT 13.2 Sec. (12.2-14.9) 08/18/18 03:24 INR 0.95 (0.87-1.13) 08/18/18 03:24 Abnormal lab findings: Abnormal Labs 08/18/18 08/18/18 08/18/18 03:24 03:24 03:24 WBC 11.2 H RDW 12.7 L Seg Neuts % (Manual) 29.0 L Lymphocytes % (Manual) 58.0 H Eosinophils % (Manual) 5.0 H Lymphocytes # (Manual) 6.5 H Eosinophils # (Manual) 0.6 H APTT 22.8 L Potassium 3.4 L BUN 22 H Glucose 302 H POC Glucose Troponin T 0.033 H Triglycerides 483 H Cholesterol 333 H HDL Cholesterol 25 L 08/18/18 08/18/18 08:04 10:05 WBC 12.9 H RDW 13.0 L Seg Neuts % (Manual) Lymphocytes % (Manual) Eosinophils % (Manual) Lymphocytes # (Manual) Eosinophils # (Manual) APTT Potassium BUN Glucose POC Glucose 358 H Troponin T Triglycerides Cholesterol HDL Cholesterol - Diagnostic Findings Chest x-ray: image reviewed (ETT in position, bilateral alveolar infiltrates) Assessment and Plan VFib arrest s/p CPR with ROSC STEMI, acute anterior wall Acute hypoxemic respiratory failure on MVS Severe metabolic acidosis, probably secondary to hypoperfusion Acute systolic heart failure Diabetes mellitus, uncontrolled Obesity CAD s/p stents Hyperlipidemia, mixed. -Currently performing cardiopulmonary resuscitation per ACLS protocol. Once there is ROSC, patient will return to slab polisher for further evaluation of the coronaries and intervention PROGNOSIS: GUARDED CONDITION: CRITICAL CODE STATUS: FULL CODE The high probability of a clinically significant, sudden or life-threatening deterioration of the [CARDIOVASCULAR, RESPIRATORY] system(s) required my full and direct attention, intervention and personal management. The aggregate critical care time was [75] minutes without overlap. Time includes spent on; [x] Data Review and interpretation [x] Patient assessment and monitoring of vital signs [x] Documentation [x] Medication orders and management
--- NOTE | 2018-08-18 10:43 | Procedure Note ---
Date of procedure: 08/18/18 Pre-op diagnosis: Vfib arrest, STEMI Post-op diagnosis: same Procedure: Right femoral CVC for venous access Emergency consent not obtained. Patient cleaned and draped in sterile Right femoral vein canulated with a finder needle, dark blood aspirated. Guidewire passed, stab wound created. Seldinger technique Dilated and a right groin CVC 16cm was placed. Guidewire was removed. All ports aspirating dark blood, non-pulsatile blood Sutured in place and sterile dressing placed. Patient tolerated the procedure well, no complications. Estimated blood loss: none Pathology: none Condition: critical Disposition: other (landscape laborer)
[2018-08-18] MEDS ORDERED: ATROPINE IV ONE (10:45)
[2018-08-18] MEDS ORDERED: ADRENALIN IV ONE ×7 (10:45→11:35)
[2018-08-18 10:49] LABS: BUN/Creatinine Ratio 24; Blood Urea Nitrogen 22 mg/dL (7-17); Calcium 8.6 mg/dL (8.4-10.2); Hemolysis Index 72
--- NOTE | 2018-08-18 10:49 | Event Note ---
Date: 08/18/18 Came to see patient at the ICU in response to code blue overhead page Patient was unresponsive and noted Vtach on monitor, pulseless ACLS immediately started. See code blue documentation paperwork for details. Code blue lasted 40 minutes- s/p defibrillation, CPR, Orally intubated Administration of IV magnesium, Lidocaine and amiodarone, epinephrine ROSC. CXR was ordered for ETT position Labs drawn Femoral CVC placed. Patient is responsive. Transfer to ship laborer for PCI. CC 65 minutes CXR reviewed-- Pulmonary edema, ETT in good position
[2018-08-18] MEDS ORDERED: KCL 10MEQ/100ML 10 MEQ/100 ML BAG IV SCH (11:00)
--- NOTE | 2018-08-18 11:02 | XRay Report ---
PORTABLE CHEST INDICATION: Post intubation. COMPARISON: 3:04 AM earlier today. FINDINGS: Portable, frontal chest radiograph, 10:19 AM, 08/18/2018 demonstrates new endotracheal tube tip approximately 3.8 cm above the jeremy. Stable cardiomediastinal silhouette and diffuse bilateral prominent bronchovascular markings, likely congestive. No significant pleural effusions. Stable EKG leads and osseous structures. CONCLUSION: Interval uncomplicated intubation with stable edema pattern, as described. Thank you for the opportunity to participate in this patient's care.
[2018-08-18] MEDS ORDERED: INTROPIN DRIP 800 MG/D5W 250 ML IV ONE (11:11)
[2018-08-18] MEDS: NEO SYNEPHRINE/NS Syringe(OR USE) IV ONE ×2 (11:15→11:18)
[2018-08-18] MEDS ORDERED: NACL 0.9% 1000 ML 1,000 ML ONE (11:33)
[2018-08-18] MEDS ORDERED: NACL 0.9% 250ML 250 ML ONE (11:43)
[2018-08-18 12:18] VITALS: BP 154/93
[2018-08-18] MEDS ORDERED: NACL 0.9% 500 ML 500 ML IV ONE (12:39)
--- NOTE | 2018-08-18 19:45 | Cardiac Catherization Report ---
EMERGENCY CARDIAC CATHETERIZATION AND CORONARY INTERVENTION REPORT A 62-year-old female, who underwent emergency intervention of the proximal LAD as a part of the STEMI protocol early this morning for acute anteroseptal myocardial infarction. Subsequently, she was doing well; however, she started having anterior chest discomfort and EKG performed in the CCU showed acute ST elevations all over the precordial leads consistent with acute thrombosis. Hence, STEMI protocol was followed, but the patient went into ventricular fibrillation in the CCU and required multiple cardioversions and prolonged CPR intubation and required vasopressors and after prolonged resuscitation she gained pulse and blood pressure. Hence because of her acute ST elevations most likely representing acute thrombosis the patient was brought to the catheterization laboratory on an emergency basis. The patient is intubated on ventilator and on vasopressors. After bringing to the catheterization laboratory the patient's blood pressure was fluctuating, was given extra dose of Levophed, continued on increased dose of dopamine. Initially because of heart rate is very slow in 20s, a temporary pacemaker was attempted from the left groin, but could not advance the wire. Hence right groin access was obtained where a central catheter was in place. A temporary balloon tipped 7-[place]el[place] sheath was inserted in the right groin and balloon tipped temporary pacemaker was advanced to the right ventricle and started pacing. Subsequently, the patient regained spontaneous sinus rhythm for a while with maintained blood pressure after Levophed and dopamine. Right femoral artery puncture was made using 18-gauge puncture needle and a 7-[place]elsh sheath was introduced. Using EBU 3.5 guiding catheter angiograms were obtained, which showed occlusion of the LAD at the ostium with patent circumflex artery. Hence, a diagnosis of acute thrombus of the stent in the proximal LAD was made. A 0.014 inch [place] XT guidewire was advanced to the area of the distal LAD. There is no coronary flow in the LAD initially(KACI 0 flow). 2.75 x 20 mm balloon was inflated in the proximal LAD few times followed by in the mid LAD and distal LAD. This showed transient KACI 2 to KACI 3 flow; however, the recurrence of clotting with occlusion of the proximal LAD was noted. Multiple balloon inflations were performed. Because of recurrent thrombosis and acute occlusion catheter thrombectomy was performed with aspiration of significant amount of clot with transient success using 6F [place] catheter. However, recurrent occlusion of the LAD involving the entire vessel noted. Subsequently, [place] AngioJet catheter was set up and multiple passes were performed with transient opening of the vessel, but recurrent thrombosis. The patient is becoming hypotensive, requiring CPR intermittently, CPR carried out throughout the procedure. Pacemaker is functioning well. In spite of multiple attempts at restoring the flow, because of recurrent thrombosis of the vessel and with no effect even using the intracoronary adenosine, intracoronary Aggrastat could not maintain the blood pressure. The patient is pacing with very, very wide QRS complexes with no blood pressure and also the patient has copious pink froathy secretions into ET tube and persistent hypoxemia noted.These findings are consistent with florid pulmonary edema with severe hypotension. Patient has prolonged CPR and could not resuscitate her. After prolonged CPR when it was unsuccessful, patient was pronounced at 11:48 a.m. Her final diagnoses are cardiogenic shock severe with pulmonary edema, hypotension with recurrent thrombotic occlusion of the LAD resulting in her . At the end of the procedure events were explained to multiple family members along with beverage manager and nursing quality assurance supervisor final. They understand. During this procedure: 1. Temporary pacemaker was inserted from the right groin. 2. Multiple balloon angioplasties were performed in the LAD from proximal to distal LAD. 3. Catheter thrombectomy of the LAD was performed. 4. AngioJet thrombectomy was performed multiple times. 5. Intracoronary injection of Aggrastat and adenosine was given. JOB# [id number] FAUSTINO/JANAY FRYE
[2018-08-18] MEDS ORDERED: PRAVACHOL PO SCH (22:00)
[2018-08-19] MEDS ORDERED: PLAVIX PO SCH (10:00)
--- NOTE | 2018-12-30 15:49 | Discharge Summary ---
<MALIA JOHNS - Last Filed: 12/31/18 09:29> Providers - Providers Date of Admission: 08/18/18 05:08 Date of discharge: 08/18/18 Attending physician: NELSON CLARK 08/18/18 Consult to Cardiac Rehabilitation [CONS] Routine Reason For Exam: post pci 08/18/18 05:12 Consult to Physician [CONS] Routine Comment: Consulting Provider: ADAMS WANG Physician Instructions: Reason For Exam: dm management 08/18/18 05:13 Consult to Physician [CONS] Routine Comment: Consulting Provider: VIOLETA DAVILA Physician Instructions: Reason For Exam: post icu mi Primary care physician: [facility], Hospitalization Reason for admission: STEMI Condition: Critical Pertinent studies: [facility] with PCI - see dictated cath report Procedures: [facility] with PCI - see dictated cath report Hospital course: 62-year-old patient with known coronary disease in 2008 had PCI, hypertension, [place] and c/o chest pain, EMS was called and ECG showed some mild ST elevations but no reciprocal changes patient's pain did not get better, repeat EKG showed increased ST elevations in anterior lateral leads and acute GA protocol was initiated. Patient was brought emergently to [facility] where the right radial approach revealed RCA nondominant stent 90% mid nondominant vessel small caliber and borderline normal LV function elevated left end-diastolic pressure. LAD proximal 95 mid 100% diagonal one stent patent but distal to 90% small-caliber vessel circumflex large dominant. irregularities obtuse marginal 1 and obtuse marginal 2 medium to large caliber vessels patent with mild to moderate irregularities separate percutaneous coronary intervention of the LAD ballooned the LAD and used a thrombectomy device for large clot burden intracoronary adenosine and nitroglycerin was given patient's stent to the mid LAD with a drug-eluting resolute 3.0 x 18 and stent of the proximal LAD with a drug-eluting resolute 4.0 x 18 FELICIA-3 was restored patient has some mild chest pain but markedly improved patient will be on IV nitroglycerin and IV Aggrastat Plavix loading was given - see dictated cath report for additional details. She was tx to CCU in stable condition following LHC with PCI and then began to c/o 3/10 epigastric pain after eating breakfast tray. repeat ECG showed acute anterior STEMI and code stemi activated. pt then developed VT and then VFib and code blue initiated. ROSC obtained after ACLS protocol and pt was taken back to [facility] for repeat coronary angiography. Pt was noted to have recurrent thrombosis and acute occlusion of LAD - see second dictated cath report for additional details. the pt continued to code during second LHC and ultimately could not be resuscitated and thus pt . Disposition: DC-20 - Discharge Diagnoses (1) STEMI (ST elevation myocardial infarction) Status: Acute (2) Cardiopulmonary arrest with successful resuscitation Status: Acute (3) V-tach Status: Acute (4) Ventricular fibrillation Status: Acute (5) CAD (coronary artery disease) Status: Chronic (6) Stented coronary artery Status: Chronic (7) Hypertension Status: Chronic Qualifiers: Hypertension type: essential hypertension Qualified Code(s): I10 - Essential (primary) hypertension (8) Hyperlipemia, mixed Status: Chronic (9) Uncontrolled type 1 diabetes mellitus Status: Chronic Qualifiers: Glycemic state: with hyperglycemia Qualified Code(s): E10.65 - Type 1 diabetes mellitus with hyperglycemia Core Measure Documentation - Palliative Care Palliative Care/ Comfort Measures: Not Applicable - Core Measures Any of the following diagnoses?: acute GA - Acute GA Discharge Requirements Aspirin at discharge: No Reason for no aspirin on DC: Medical contraindication (pt ) ETELVINA/ARB for LVSD if EF <40%: Not Applicable (pt ) Beta leny at discharge: No Reason for no beta leny on DC: Medical contraindication (pt ) Statin for LDL = or >100 mg/dl on DC: Not Applicable (pt ) Exam - Constitutional Vitals: Temp Pulse Resp BP Pulse Ox 97.9 F 68 12 154/93 93 08/18/18 06:09 08/18/18 10:10 08/18/18 13:03 08/18/18 10:20 08/18/18 10:20 Plan Follow up with: SCOTT GIBBS MD [Primary Care Provider] - 3-5 Days <JACEY MCKEON - Last Filed: 12/31/18 10:40> Providers - Providers Date of Admission: 08/18/18 05:08 Attending physician: NELSON CLARK 08/18/18 Consult to Cardiac Rehabilitation [CONS] Routine Reason For Exam: post pci 08/18/18 05:12 Consult to Physician [CONS] Routine Comment: Consulting Provider: ADAMS WANG Physician Instructions: Reason For Exam: dm management 08/18/18 05:13 Consult to Physician [CONS] Routine Comment: Consulting Provider: VIOLETA DAVILA Physician Instructions: Reason For Exam: post icu mi Primary care physician: [facility], Hospitalization Hospital course: pt had acute lad occlusion with heavy thrombosis requiring multiple interventions both chemically and thrombectomy at end of first cath felicia 2-3 flow noted and pt on aggrstat and pt had chest pain and vfib arrest and repeat cath occlusion of lad and cardiogenic shock , acute systolic heart failure and heavy thrombosis and mulitple interventions were unsuccussful and pt had uncontrolled sugars dm not controlled and after prolonged resuctitation, pt . - Discharge Diagnoses (1) Acute anterior wall GA Status: Acute (2) Acute diastolic CHF (congestive heart failure) Status: Acute (3) Uncontrolled type 1 diabetes mellitus Status: Chronic Qualifiers: Glycemic state: with hyperglycemia Qualified Code(s): E10.65 - Type 1 diabetes mellitus with hyperglycemia (4) Hyperlipemia, mixed Status: Chronic (5) Hypertension Status: Chronic Qualifiers: Hypertension type: essential hypertension Qualified Code(s): I10 - Essential (primary) hypertension (6) Shock Status: Acute Comment: cardiogenic shock (7) Respiratory failure with hypoxia Status: Acute Qualifiers: Chronicity: acute Qualified Code(s): J96.01 - Acute respiratory failure with hypoxia (8) Acute systolic congestive heart failure, NYHA class 4 Status: Acute (9) Acute renal failure Status: Acute Qualifiers: Acute renal failure type: with acute tubular necrosis Qualified Code(s): N17.0 - Acute kidney failure with tubular necrosis (10) Ventricular fibrillation Status: Acute Exam - Constitutional Vitals: Temp Pulse Resp BP Pulse Ox 97.9 F 68 12 154/93 93 08/18/18 06:09 08/18/18 10:10 08/18/18 13:03 08/18/18 10:20 08/18/18 10:20
== END 2018-08-18 16:00 | DRG 246 ==
LOC: ED 03:04 → CATH 04:20 → CC1 05:08
PROVIDERS: ADMIT Internal Medicine; ATTEND Internal Medicine
PROC: 5A12012 Performance of Cardiac Output, Single, Manual (ICD-10-PCS; principal; 2018-08-18)
PROC: 06HY33Z Insertion of Infusion Device into Lower Vein, Percutaneous Approach (ICD-10-PCS; 2018-08-18)
PROC: 5A2204Z Restoration of Cardiac Rhythm, Single (ICD-10-PCS; 2018-08-18)
PROC: 0BH17EZ Insertion of Endotracheal Airway into Trachea, Via Natural or Artificial Opening (ICD-10-PCS; 2018-08-18)
PROC: 02C03ZZ Extirpation of Matter from Coronary Artery, One Artery, Percutaneous Approach (ICD-10-PCS; 2018-08-18)
PROC: 027035Z Dilation of Coronary Artery, One Artery with Two Drug-eluting Intraluminal Devices, Percutaneous Approach (ICD-10-PCS; 2018-08-18)
PROC: 02703ZZ Dilation of Coronary Artery, One Artery, Percutaneous Approach (ICD-10-PCS; 2018-08-18)
PROC: 02C03ZZ Extirpation of Matter from Coronary Artery, One Artery, Percutaneous Approach (ICD-10-PCS; 2018-08-18)
PROC: 3E073PZ Introduction of Platelet Inhibitor into Coronary Artery, Percutaneous Approach (ICD-10-PCS; 2018-08-18)
PROC: 4A023N7 Measurement of Cardiac Sampling and Pressure, Left Heart, Percutaneous Approach (ICD-10-PCS; 2018-08-18)
PROC: B2111ZZ Fluoroscopy of Multiple Coronary Arteries using Low Osmolar Contrast (ICD-10-PCS; 2018-08-18)
PROC: 4A023N7 Measurement of Cardiac Sampling and Pressure, Left Heart, Percutaneous Approach (ICD-10-PCS; 2018-08-18)
PROC: B2111ZZ Fluoroscopy of Multiple Coronary Arteries using Low Osmolar Contrast (ICD-10-PCS; 2018-08-18)
PROC: B2151ZZ Fluoroscopy of Left Heart using Low Osmolar Contrast (ICD-10-PCS; 2018-08-18)
PROC: B240ZZ3 Ultrasonography of Single Coronary Artery, Intravascular (ICD-10-PCS; 2018-08-18)
PROC: 3E033PZ Introduction of Platelet Inhibitor into Peripheral Vein, Percutaneous Approach (ICD-10-PCS; 2018-08-18)
DX: I21.09 ST elevation (STEMI) myocardial infarction involving other coronary artery of anterior wall (principal); J96.01 Acute respiratory failure with hypoxia; I50.41 Acute combined systolic (congestive) and diastolic (congestive) heart failure; I47.2 Ventricular tachycardia; T82.867A Thrombosis due to cardiac prosthetic devices, implants and grafts, initial encounter; I25.10 Atherosclerotic heart disease of native coronary artery without angina pectoris; E78.5 Hyperlipidemia, unspecified; E78.2 Mixed hyperlipidemia; E10.65 Type 1 diabetes mellitus with hyperglycemia; I95.9 Hypotension, unspecified; R57.0 Cardiogenic shock; I25.82 Chronic total occlusion of coronary artery; E10.40 Type 1 diabetes mellitus with diabetic neuropathy, unspecified; I49.01 Ventricular fibrillation; I10 Essential (primary) hypertension; Z79.4 Long term (current) use of insulin; Z79.899 Other long term (current) drug therapy; Z82.49 Family history of ischemic heart disease and other diseases of the circulatory system; Y83.8 Other surgical procedures as the cause of abnormal reaction of the patient, or of later complication, without mention of misadventure at the time of the procedure; Y92.238 Other place in hospital as the place of occurrence of the external cause
CPT/HCPCS: 31500; 33210; 36415; 71045; 80048; 80053; 80061; 82962; 84484; 85007; 85014; 85018; 85025; 85027; 85347; 85610; 85730; 92920; 92941; 92973; 92978; 93005; 93010; 93458; 94760; G0378; A9270-GY; C1725; C1753; C1757; C1769; C1874; C1887; C1894; C9606; J0153; J0171; J0282; J0461; J1265; J1644; J1815; J2001; J2250; J2270; J2370; J2405; J3010; J3246; J3480; J7030; J7040; J7050; J7060; Q9967